=== PATIENT | female | born 1945 | race Caucasian/White ===

== ENCOUNTER 2018-03-18 06:11 | Inpatient (IN) | payer MEDICARE, OTHER ==
[~2018-03-18] VITALS: Ht 165.1 cm; Wt 105.2 kg
[~2018-03-18 06:11] MED LIST: ACET500 PO; AMOX500 PO; ASPI325EC PO; Aspirin EC81 MG PO; B/P MED; CALCITRATE200 MG PO; CYCL10 PO; ESCI20 PO; ESTR1; GLUCOSAMINE-CH1 EA22 PO; HYDCHL25 PO; HYDR1TAB94 PO; Hair, Skin & N1 EACH PO; IBUP800 PO; LISI20 PO; LOSA25 PO; Lipitor20 MG PO; Mupirocin22 GM TOP; OXYACE5T PO; PARO20; PRAV20 PO; ROXICODONE5 MG PO; SERT100 PO; SERT50 PO; VITAMIN D31000 UNIT PO; VITAMINS; [UNRECOGNIZED DRUG - REMARK]
[2018-03-18] MEDS ORDERED: ACET500 PO (11:27)
[2018-03-18] MEDS ORDERED: ASPI325EC PO (11:28)
[2018-03-18] MEDS ORDERED: ROXICODONE5 MG PO (11:28)
[2018-03-19 05:57] LABS: BASOPHILS ABSOLUTE AUTO 0.05 K/mm3 (0.00-0.23); BASOPHILS PERCENT AUTO 1 % (0-2); EOSINOPHILS ABSOLUTE AUTO 0.54 K/mm3 (0.00-0.68); EOSINOPHILS PERCENT AUTO 7 % (0-6); Hematocrit 31.1 % (33.0-51.0); Hemoglobin 10.3 g/dL (11.5-16.0); IMMATURE GRAN ABSOLUTE AUTO 0.03 K/mm3 (0.00-0.10); IMMATURE GRAN PERCENT AUTO 0 % (0-1); LYMPHOCYTES ABSOLUTE AUTO 1.34 K/mm3 (0.84-5.20); LYMPHOCYTES PERCENT AUTO 16 % (21-46); MONOCYTES ABSOLUTE AUTO 0.76 K/mm3 (0.16-1.47); MONOCYTES PERCENT AUTO 9 % (4-13); Mean Corpuscular HGB 27.1 pg (26.0-34.0); Mean Corpuscular HGB Conc 33.1 g/dL (31.5-36.5); Mean Corpuscular Volume 82 fL (80-100); Mean Platelet Volume 10.6 fL (9.1-12.4); NEUTROPHILS ABSOLUTE AUTO 5.52 K/mm3 (1.96-9.15); NEUTROPHILS PERCENT AUTO 67 % (41-73); Platelet Count 211 K/mm3 (150-400); RDW Coefficient Variation 13.4 % (11.7-14.2); RDW Standard Deviation 40.2 fL (35.1-46.3); White Blood Cell Count 8.24 K/mm3 (4.00-11.30)
[2018-03-19 06:13] LABS: Anion Gap 8 mmol/L (6-16); Blood Urea Nitrogen 12 mg/dL (8-24); Bun/Creatinine Ratio 14.9 (12.0-20.0); CO2, Blood 29 mmol/L (21-32); Calcium, Blood 8.2 mg/dL (8.5-10.1); Chloride, Blood 103 mmol/L (98-108); Creatinine, Blood 0.81 mg/dL (0.40-1.00); Glomerular Filtration Rate >60 (60-); Glucose, Blood 111 mg/dL (70-99); Magnesium, Blood 1.9 mg/dL (1.6-2.4); Potassium, Blood 3.7 mmol/L (3.5-5.5); Sodium, Blood 140 mmol/L (136-145)
== END 2018-03-19 16:16 | disposition home or self-care (01) | DRG 468 ==
LOC: SURS 06:11 → PRE IP 07:30 → SURS 12:15
PROVIDERS: Orthopaedic Surgery
PROC: 0SRC0J9 Replacement of Right Knee Joint with Synthetic Substitute, Cemented, Open Approach (ICD-10-PCS; 2018-03-18)
PROC: 0SPC0JZ Removal of Synthetic Substitute from Right Knee Joint, Open Approach (ICD-10-PCS; principal; 2018-03-18 07:30)
DX: M17.11 Unilateral primary osteoarthritis, right knee (principal); I10 Essential (primary) hypertension; F32.9 Major depressive disorder, single episode, unspecified; E66.9 Obesity, unspecified; Z68.39 Body mass index [BMI] 39.0-39.9, adult; Z23 Encounter for immunization
CPT/HCPCS: 36415; 73560-RT; 80048; 83735; 85025; 88300; 97110; 97116; 97162; C1713; C1776; G8978; G8979; J0171; J0690; J0735; J1885; J2250; J2795; J3010; J7120; Q0163

== ENCOUNTER 2019-01-24 06:37 | Day surgery (SDC) | payer MEDICARE, OTHER ==
[~2019-01-24] VITALS: Ht 165.1 cm; Wt 107.3 kg
[2019-01-24] MEDS ORDERED: LO-DOSE ASPIRIN81 MG (07:25)
== END 2019-01-24 09:19 | disposition home or self-care (01) ==
LOC: ORSCSDS 06:37
PROVIDERS: Internal Medicine Gastroenterology
PROC: 0DBH8ZX Excision of Cecum, Via Natural or Artificial Opening Endoscopic, Diagnostic (ICD-10-PCS; principal; 2019-01-24 08:00)
DX: Z12.11 Encounter for screening for malignant neoplasm of colon (principal); D12.0 Benign neoplasm of cecum; K57.30 Diverticulosis of large intestine without perforation or abscess without bleeding; I10 Essential (primary) hypertension; K64.8 Other hemorrhoids; E66.9 Obesity, unspecified; F32.9 Major depressive disorder, single episode, unspecified; Z79.82 Long term (current) use of aspirin; Z68.39 Body mass index [BMI] 39.0-39.9, adult; Z79.899 Other long term (current) drug therapy
CPT/HCPCS: 88305; J0461; J2405; J2704; J7120

== ENCOUNTER 2019-02-09 07:50 | Emergency (ER) | payer MEDICARE, OTHER ==
[~2019-02-09] VITALS: Ht 167.6 cm; Wt 107.0 kg
[~2019-02-09 07:50] MED LIST changes: +LO-DOSE ASPIRIN81 MG
[2019-02-09] MEDS ORDERED: Norco 7.5-3251 EACH PO (09:52)
[2019-02-11] MEDS ORDERED: SERT100 PO (16:42)
[2019-02-11] MEDS ORDERED: IBUP800 PO (16:43)
[2019-02-11] MEDS ORDERED: Multivitamin1 EAC1 PO (16:43)
[2019-02-11] MEDS ORDERED: MELA3 PO (16:44)
== END 2019-02-09 10:10 | disposition home or self-care (01) ==
LOC: ER 07:50
DX: S52.572A Other intraarticular fracture of lower end of left radius, initial encounter for closed fracture (principal); S52.602A Unspecified fracture of lower end of left ulna, initial encounter for closed fracture; M19.042 Primary osteoarthritis, left hand; W18.30XA Fall on same level, unspecified, initial encounter; Z88.5 Allergy status to narcotic agent; Z79.899 Other long term (current) drug therapy; I10 Essential (primary) hypertension
CPT/HCPCS: 25605; 73110; 76000; 99152; 99283-25; A9270-GY; J2704; J7030

== ENCOUNTER 2019-02-13 11:00 | Day surgery (SDC) | payer MEDICARE, OTHER ==
[~2019-02-13] VITALS: Ht 165.1 cm; Wt 108.8 kg
[~2019-02-13 11:00] MED LIST changes: +MELA3 PO; +Multivitamin1 EAC1 PO; +Norco 7.5-3251 EACH PO
--- NOTE | 2019-02-13 11:44 | NUR ---
History, Chart, Medications and Allergies reviewed before start of procedure. Lungs clear T/O to Auscultation. Patient confirms NPO status and agrees with scheduled surgery. Pre-Op teaching done. Pt verbalizes understanding.
--- NOTE | 2019-02-13 15:51 | NUR ---
RECIEVED PATIENT FROM [facility] STATES PAIN AT 3/10 DRESSING CDI. PATIENT AWAKE TALKING WITH RN.
--- NOTE | 2019-02-13 15:53 | NUR ---
GIVEN JUICE AND COFFEE AND ICE PACKS PLACED ON WRIST.
--- NOTE | 2019-02-13 16:02 | NUR ---
PT REPORT FROM DANIELLE REED. PT AWAKE AND EATING WILL GIVE PAIN MEDSL.
--- NOTE | 2019-02-13 16:54 | NUR ---
Patient up to Ambulate independently. Gait steady.PT RECIEVED ICE BAGS AND SPLINT. Discharge instructions reviewed with patient. Patient verbalizes understanding. Copy given to patient to take home. Patient States Post-Procedure ride home has been arranged. Discharged via wheelchair to private car for ride home. ALL BELONINGS RETUNED TO PATIENT.
== END 2019-02-13 22:47 | disposition home or self-care (01) ==
LOC: ORSCMMR 11:00 → ORD 12:30 → ORSCMMR 22:47
PROVIDERS: Orthopaedic Surgery
PROC: 0PSJ04Z Reposition Left Radius with Internal Fixation Device, Open Approach (ICD-10-PCS; principal; 2019-02-13 12:30)
DX: S52.572A Other intraarticular fracture of lower end of left radius, initial encounter for closed fracture (principal); W18.30XA Fall on same level, unspecified, initial encounter; I10 Essential (primary) hypertension; Z79.899 Other long term (current) drug therapy
CPT/HCPCS: C1713; J0690; J1100; J2405; J2704; J3010; J7120

== ENCOUNTER 2020-11-12 19:47 | Emergency (ER) | payer MEDICARE, OTHER ==
[~2020-11-12] VITALS: Ht 165.1 cm; Wt 104.3 kg
[2020-11-12] MEDS ORDERED: AMIT25 PO (20:47)
== END 2020-11-12 23:04 | disposition home or self-care (01) ==
LOC: ER 19:47
DX: S43.015A Anterior dislocation of left humerus, initial encounter (principal); I10 Essential (primary) hypertension; Z88.5 Allergy status to narcotic agent; Z79.899 Other long term (current) drug therapy; W01.198A Fall on same level from slipping, tripping and stumbling with subsequent striking against other object, initial encounter
CPT/HCPCS: 23655; 73020; 73030; 96374-59; 96375-59; 99284-25; J2270; J2405; J2704; J7120

== ENCOUNTER 2021-02-07 08:29 | Day surgery (SDC) | payer MEDICARE, OTHER ==
[~2021-02-07] VITALS: Ht 165.1 cm; Wt 112.3 kg
[~2021-02-07 08:29] MED LIST changes: +AMIT25 PO
[2021-02-07] MEDS ORDERED: THERA-D2000 UNIT (09:12)
[2021-02-07] MEDS ORDERED: Norco 10-325 T1 EACH PO (09:13)
[2021-02-07] MEDS ORDERED: HYDACE10B PO (09:14)
--- NOTE | 2021-02-07 10:48 | NUR ---
02/07/21 1048 Penny John 1MG OF EPI ADDED TO FIRST BAG OF LR USED FOR JOINT IRRIGATION.
--- NOTE | 2021-02-07 11:51 | NUR ---
02/07/21 1151 Mari Veras O2 DC'D AT 1151. O2 SATS ARE 100 AT THIS TIME
== END 2021-02-07 12:55 | disposition home or self-care (01) ==
LOC: ORSCSDS 08:29
PROVIDERS: Orthopaedic Surgery
PROC: 0LQ24ZZ Repair Left Shoulder Tendon, Percutaneous Endoscopic Approach (ICD-10-PCS; principal; 2021-02-07 09:45)
PROC: 0LS44ZZ Reposition Left Upper Arm Tendon, Percutaneous Endoscopic Approach (ICD-10-PCS; principal; 2021-02-07 09:45)
DX: M75.122 Complete rotator cuff tear or rupture of left shoulder, not specified as traumatic (principal); M75.22 Bicipital tendinitis, left shoulder; S43.005A Unspecified dislocation of left shoulder joint, initial encounter; I10 Essential (primary) hypertension; E66.01 Morbid (severe) obesity due to excess calories; Z68.41 Body mass index [BMI] 40.0-44.9, adult; Z79.899 Other long term (current) drug therapy
CPT/HCPCS: C1713; J0171; J0330; J0690; J0735; J1100; J1885; J2405; J2704; J2795; J3010; J3370; J7120

== ENCOUNTER 2023-08-15 13:30 | Emergency (ER) | payer MEDICARE, OTHER ==
[~2023-08-15] VITALS: Ht 167.6 cm; Wt 54.4 kg
[~2023-08-15 13:30] MED LIST changes: +HYDACE10B PO; +Norco 10-325 T1 EACH PO; +THERA-D2000 UNIT
[2023-08-15 14:10] LABS: BASOPHILS ABSOLUTE AUTO 0.08 K/mm3 (0.00-0.23); BASOPHILS PERCENT AUTO 1 % (0-2); EOSINOPHILS ABSOLUTE AUTO 0.63 K/mm3 (0.00-0.68); EOSINOPHILS PERCENT AUTO 6 % (0-6); Hematocrit 42.8 % (33.0-51.0); Hemoglobin 14.1 g/dL (11.5-16.0); IMMATURE GRAN ABSOLUTE AUTO 0.03 K/mm3 (0.00-0.10); IMMATURE GRAN PERCENT AUTO 0 % (0-1); LYMPHOCYTES ABSOLUTE AUTO 1.98 K/mm3 (0.84-5.20); LYMPHOCYTES PERCENT AUTO 19 % (21-46); MONOCYTES ABSOLUTE AUTO 0.58 K/mm3 (0.16-1.47); MONOCYTES PERCENT AUTO 6 % (4-13); Mean Corpuscular HGB 26.8 pg (26.0-34.0); Mean Corpuscular HGB Conc 32.9 g/dL (31.5-36.5); Mean Corpuscular Volume 81 fL (80-100); Mean Platelet Volume 10.5 fL (9.1-12.4); NEUTROPHILS PERCENT AUTO 68 % (41-73); Platelet Count 308 K/mm3 (150-400); RDW Coefficient Variation 13.5 % (11.7-14.2); RDW Standard Deviation 39.9 fL (35.1-46.3); Red Blood Cell Count 5.26 M/mm3 (3.80-5.20)
[2023-08-15 14:26] LABS: Albumin, Blood 3.9 g/dL (3.4-5.0); Albumin/Globulin Ratio 1.3 (0.8-1.8); Bilirubin, Total 1.1 mg/dL (0.1-1.0); Bun/Creatinine Ratio 19.9 (12.0-20.0); Calcium, Blood 9.2 mg/dL (8.5-10.1); Creatinine, Blood 0.81 mg/dL (0.40-1.00); Globulin, Blood 3.1 g/dL (2.2-4.0); Potassium, Blood 3.5 mmol/L (3.5-5.5)
[2023-08-15 17:58] LABS: Source, Urine Clean Catch
[2023-08-15 18:02] LABS: Appearance, Urine Clear (Clear); Bilirubin, Urine Neg (Neg); Blood, Urine Neg (Neg); Color, Urine Yellow (P-Yellow); Glucose Qualitative, Urine Neg (Neg); Ketones, Urine Neg (Neg); Leukocyte Esterase, Urine 2+ (Neg); Nitrite, Urine Neg (Neg); Protein, Urine Neg (Neg); Specific Gravity, Urine 1.005 (1.003-1.022); Urobilinogen, Urine NORM (Normal)
[2023-08-15 18:10] LABS: Bacteria Few /hpf; Red Blood Cells, Urine 0-2 /hpf (0-2); Squamous Epithelial Cells Rare /hpf (Few)
[2023-08-15] MEDS ORDERED: CEPH500 PO (18:18)
[2023-08-15 19:28] VITALS: BP 115/73
== END 2023-08-15 19:28 | disposition home or self-care (01) ==
LOC: ER 13:30
PROVIDERS: Emergency Medicine; Physician Assistant
DX: N39.0 Urinary tract infection, site not specified (principal); I10 Essential (primary) hypertension; Z88.5 Allergy status to narcotic agent; Z79.899 Other long term (current) drug therapy
CPT/HCPCS: 70450; 80053; 81001; 82947; 85025; 87086; 93005; 93010; 99284-25